=== PATIENT | male | born 1930 | race Caucasian/White ===

== ENCOUNTER 2016-08-27 14:34 | Observation (INO) | payer OTHER, BC ==
[~2016-08-27] VITALS: Ht 167.6 cm; Wt 95.0 kg
[2016-08-27] MEDS ORDERED: SODIUM CHLORIDE 0.9% 1000ML 500 ML IV STA (14:55)
[2016-08-27] MEDS ORDERED: DIPHTHERIA/TETANUS/PERTUSSIS 0.5 ML SYR/VIAL IM. ONE (15:00)
--- NOTE | 2016-08-27 15:04 | EMERGENCY ROOM VISIT NOTE ---
History Report prepared by Luis: Pepper Keys Under the Supervision of: Dr. John Castaneda M.D. First contact with patient: 14:49 Chief Complaint: FALL Stated Complaint: SYNCOPE History of Present Illness The patient is a 86 year old male who presents to the Emergency Room via EMS status post a fall this afternoon. Per nursing staff, the patient was sitting at the kitchen table and fell to the ground. His son was in the bathroom at the time and heard a thump but he did not witness the fall. The patient did hit his head. He was wearing glasses on top of his head and obtained two small lacerations on the top of his head from the nose pieces on the glasses. Upon EMS arrival, the patient was pale and sweaty. He was also incontinent of both stool and urine. Currently, the patient does not complain of any pain. He does not remember falling to the ground. History limited secondary to altered mental status. Tetanus status is unknown. Source of History: patient, nursing staff History Limited By: AMS Onset: this afternoon Position: other (global) Quality: other (fall) Timing: other (episode) Note: Other symptoms: lacerations to head, pale & sweaty, incontinent of stool and urine Review of Systems Limited secondary to altered mental status. Past Medical & Surgical Medical Problems: (1) Dementia Family History Noncontributory secondary to age. Social History Smoking Status: Former Smoker Housing Status: lives with family Current/Historical Medications Scheduled Acetylcarnitine Hcl (Acetyl L-Carnitine), 1 TAB PO QPM Aspirin (Aspirin Ec), 81 MG PO 3XWK Brimonidine Tartrate-Timolol M (Combigan), 1 DROP OPR BID Brinzolamide Oph (Azopt Oph), 1 DROP OPR BID Calcium Carbonate-Cholecalcife (Caltrate 600+D), 1 TAB PO DAILY Multiple Vitamins W/ Minerals (Centrum Silver Adult 50+), 1 TAB PO DAILY [place]-3 Fatty Acids (Fish Oil), 600 MG PO DAILY Pindolol (Visken), 5 MG PO DAILY Vitamin Z-Cfhzkbxhwabgkoy-Tjts (Vitamin C & D3/Marie Hips), 3 CAP PO DAILY Allergies Coded Allergies: Bupivacaine (Verified Allergy, Severe, RXN UNKNOWN, BUT ENDED UP IN THE UNIT, 08/27/16) Fentanyl (Verified Allergy, Severe, RXN UNKNOWN, BUT ENDED UP IN THE UNIT , 08/27/16) Celecoxib (Verified Adverse Reaction, Unknown, BLACKED OUT, 08/27/16) Physical Exam Vital Signs Date Time Temp Pulse Resp B/P Pulse Ox O2 Delivery O2 Flow Rate FiO2 08/27/16 20:34 70 17 96 08/27/16 19:34 69 16 95 08/27/16 19:01 74 08/27/16 18:57 74 18 127/74 96 Room Air 08/27/16 18:56 127/74 08/27/16 18:34 79 20 99 08/27/16 17:34 80 31 97 08/27/16 17:04 143/77 08/27/16 16:55 79 18 143/77 97 Room Air 08/27/16 15:34 75 21 97 08/27/16 15:29 97 Room Air 08/27/16 15:00 71 08/27/16 14:40 133/78 08/27/16 14:39 37.1 67 18 133/78 95 Room Air Physical Exam GENERAL: Patient is in no acute distress. HEENT: 2, 1 cm fairly superficial lacerations to the superior scalp consistent with an injury form the nasal portion of his glasses, pupils equal and reactive to light, no other facial trauma noted, mucous membranes are moist. NECK: No stridor, no adenopathy, no meningismus, trachea is midline, no posterior c-spine tenderness. LUNGS: Clear to auscultation bilaterally, no wheeze, no rhonchi, breath sounds equal. HEART: Without murmurs gallops or rubs, regular rate and rhythm. ABDOMEN: Soft, nontender, bowel sounds positive, no hernias, no peritonitis. EXTREMITIES: No cyanosis or edema, full range of motion of all the joints without pain or difficulty, no signs for acute trauma. NEUROLOGIC: Amnestic of today's events, some dementia suspected, moving all extremities equally, awake. SKIN: No rash, no jaundice, no diaphoresis. Medical Decision & Procedures ER Provider Diagnostic Interpretation: Radiology results and stated below per my review and radiologist interpretation: CHEST ONE VIEW PORTABLE CLINICAL HISTORY: EVALUATE ALTERED MENTAL STATUS/WEAKNESS dyspnea COMPARISON STUDY: No previous studies for comparison. FINDINGS: The bones soft tissues and hemidiaphragms are normal. The cardiomediastinal silhouette is normal. The lungs are clear. The pulmonary vasculature is normal. IMPRESSION: Negative chest. Electronically signed by: Elmo Iniguez M.D. 08/27/2016 3:39 PM Dictated Date/Time: 08/27/2016 3:[address] SCAN OF THE BRAIN WITHOUT IV CONTRAST CLINICAL HISTORY: Fall. Change in mental status. COMPARISON STUDY: No priors. TECHNIQUE: Unenhanced axial CT scan of the brain is performed from the vertex to the skull base. CT DOSE: Reported separately under the concurrently performed CT scan of the cervical spine. FINDINGS: Brain parenchyma: There are age-related involutional changes noting mild to moderate patchy subcortical and periventricular microangiopathic change. There is no hemorrhage, mass effect, or evidence of acute territorial ischemia by CT criteria. Peralta-white matter is preserved. No extra-axial fluid collection is seen. Ventricles, sulci, cisterns: Prominent secondary to involutional change. Intracranial vasculature: There is atherosclerotic calcification of the cavernous carotid and vertebral arteries. Calvarium: The skeletal structures are osteopenic. There is no depressed calvarial fracture. Sinuses and mastoids: The visualized paranasal sinuses are clear. The mastoid air cells are well pneumatized. Orbits: The bony orbits are grossly intact. There are bilateral ocular lens implants. IMPRESSION: There is no hemorrhage, mass effect, or evidence of acute territorial ischemia by CT criteria. Electronically signed by: John Olea M.D. 08/27/2016 4:42 PM Dictated Date/Time: 08/27/2016 4:[address] SCAN OF THE CERVICAL SPINE CLINICAL HISTORY: Fall. Trauma. COMPARISON STUDY: No priors. TECHNIQUE: CT scan of the cervical spine is performed from the skull base to the upper thoracic spine. Images are reviewed in the axial, sagittal, and coronal planes. IV contrast was not administered for this examination. CT DOSE: 1065.86 mGy.cm FINDINGS: Skeletal structures: The skeletal structures are osteopenic. There is no evidence of fracture or subluxation involving the cervical spine. Vertebral body height and alignment are maintained. The odontoid process and lateral masses are intact. The atlantoaxial articulation is preserved noting productive degenerative change. The spinous processes appear intact. Anterior osteophytes are noted in the lower cervical region. Endplate sclerosis is present at C5-C6 and C6-C7. There is moderate multilevel cervical spondylosis. Uncovertebral and facet arthropathy contribute to neural foraminal narrowing at most levels. This is greatest at C5-C6 and C6-C7. Intervertebral discs: Moderate degenerative disc space narrowing is seen at C4-C5. Moderate to advanced narrowing seen at C5-C6 and C6-C7. Central canal: Posterior disc osteophyte complexes at C4-C5, C5-C6, and C6-C7 likely contribute to acquired compromise of the central canal. Soft tissues: The prevertebral and paraspinous soft tissues are within normal limits. Calvarium: The visualized calvarium at the skull base appears intact. Brain parenchyma: Partially visualized brain parenchyma the skull base is within normal limits noting age-related involutional change. Sinuses and mastoids: There is trace mucosal thickening within the maxillary antra. The mastoid air cells are well pneumatized. Lung apices: Clear as visualized. IMPRESSION: 1. There is no evidence of fracture or subluxation involving the cervical spine. 2. Osteopenia and spondylotic change as above. Electronically signed by: John Olea M.D. 08/27/2016 4:45 PM Dictated Date/Time: 08/27/2016 4:39 PM Laboratory Results 08/27/16 18:11 Red Blood Count 4.29, Mean Corpuscular Volume 95.8, Mean Corpuscular Hemoglobin 32.2, Mean Corpuscular Hemoglobin Concent 33.6, Mean Platelet Volume 9.3, Neutrophils (%) (Auto) 62.6, Lymphocytes (%) (Auto) 18.1, Monocytes (%) (Auto) 18.4, Eosinophils (%) (Auto) 0.6, Basophils (%) (Auto) 0.3, Neutrophils # (Auto ) 2.21, Lymphocytes # (Auto) 0.64, Monocytes # (Auto) 0.65, Eosinophils # (Auto ) 0.02, Basophils # (Auto) 0.01 08/27/16 16:15 Test 08/27/16 16:15 08/27/16 18:11 08/27/16 18:35 08/27/16 20:26 Anion Gap 11.0 mmol/L (3-11) Estimated GFR () 91.4 Estimated GFR (Non- 78.9 BUN/Creatinine Ratio 17.2 (10-20) Calcium Level 8.3 mg/dl (8.5-10.1) Total Bilirubin 0.5 mg/dl (0.2-1) Aspartate Amino Transf (AST/SGOT) U/L (15-37) Alanine Aminotransferase (ALT/SGPT) 23 U/L (12-78) Alkaline Phosphatase 63 U/L (45-117) Total Protein 6.7 gm/dl (6.4-8.2) Albumin 3.1 gm/dl (3.4-5.0) Globulin 3.6 gm/dl (2.5-4.0) Albumin/Globulin Ratio 0.9 (0.9-2) Thyroid Stimulating Hormone (TSH) 0.522 uIu/ml (0.300-4.500) White Blood Count 3.53 K/uL (4.8-10.8) Red Blood Count 4.29 M/uL (4.7-6.1) Hemoglobin 13.8 g/dL (14.0-18.0) Hematocrit 41.1 % (42-52) Mean Corpuscular Volume 95.8 fL (80-100) Mean Corpuscular Hemoglobin 32.2 pg (25-34) Mean Corpuscular Hemoglobin Concent 33.6 g/dl (32-36) Platelet Count 108 K/uL (130-400) Mean Platelet Volume 9.3 fL (7.4-10.4) Neutrophils (%) (Auto) 62.6 % Lymphocytes (%) (Auto) 18.1 % Monocytes (%) (Auto) 18.4 % Eosinophils (%) (Auto) 0.6 % Basophils (%) (Auto) 0.3 % Neutrophils # (Auto) 2.21 K/uL (1.4-6.5) Lymphocytes # (Auto) 0.64 K/uL (1.2-3.4) Monocytes # (Auto) 0.65 K/uL (0.11-0.59) Eosinophils # (Auto) 0.02 K/uL (0-0.5) Basophils # (Auto) 0.01 K/uL (0-0.2) RDW Standard Deviation 48.4 fL (36.4-46.3) RDW Coefficient of Variation 13.8 % (11.5-14.5) Immature Granulocyte % (Auto) 0.0 % Immature Granulocyte # (Auto) 0.00 K/uL (0.00-0.02) Prothrombin Time 11.0 SECONDS (9.0-12.0) Prothromb Time International Ratio 1.0 (0.9-1.1) Activated Partial Thromboplast Time 26.5 SECONDS (21.0-31.0) Partial Thromboplastin Ratio 1.0 Urine Color DK YELLOW Urine Appearance CLEAR (CLEAR) Urine pH 5.0 (4.5-7.5) Urine Specific [place] 1.021 (1.000-1.030) Urine Protein NEG (NEG) Urine Glucose (UA) NEG (NEG) Urine Ketones NEG (NEG) Urine Occult Blood NEG (NEG) Urine Nitrite NEG (NEG) Urine Bilirubin NEG (NEG) Urine Urobilinogen NEG (NEG) Urine Leukocyte Esterase NEG (NEG) Test 08/27/16 21:27 Laboratory results reviewed by me. Medications Administered Medications (Trade) Dose Ordered Sig/Marcus Route Start Time Stop Time Status Last Admin Dose Admin Diphtheria/ Pertussis/Tetanus Vacc 0.5 ml 0.5 ml ONCE ONCE IM. 08/27/16 15:00 08/27/16 15:02 DC 08/27/16 15:22 0.5 ML Sodium Chloride 500 ml @ 999 mls/hr Q31M STAT IV 08/27/16 14:55 08/27/16 15:25 DC 08/27/16 17:15 999 MLS/HR Sodium Chloride 500 ml @ 999 mls/hr Q31M STAT IV 08/27/16 18:04 08/27/16 18:34 DC 08/27/16 18:04 999 MLS/HR Sodium Chloride (Nss 500ml) 500 ml @ 999 mls/hr Q31M STAT IV 08/27/16 18:40 08/27/16 19:10 DC 08/27/16 19:00 999 MLS/HR ECG Indication: other (fall) Rate (beats per minute): 67 Rhythm: normal sinus Findings: no acute ischemic change, no ectopy Comparison ECG Date: 03/09/2004 Change: no significant change ED Course 1452: The patient was evaluated in room A9A. A complete history and physical exam was performed. 1455: Ordered NSS 500 ml @ 999 mls/hr IV, Adacel Inj 0.5 ml IM. 1608: I spoke with the patient's son who confirmed the patients history. He said that the patients mental state is currently baseline. 1804: Ordered NSS 500 ml @ 999 mls/hr IV. 1840: Ordered NSS 500 ml @ 999 mls/hr IV. 190: Upon reexamination the patient is resting comfortably. I discussed results and treatment plan with the patient. He verbalizes agreement and understanding. The patient will be evaluated for further management. 1937: I discussed the case with Dr. Sakshi Naqvi. The patient will be evaluated for further management. Medical Decision Differentials include intracranial bleeding, stroke, syncope, UT, dysrhythmia, anemia, electrolyte imbalance, infection. There is no leukocytosis or worrisome anemia. No significant electrolyte abnormality, kidney failure, hepatitis. The patient appears to be in a euthyroid state. Urinalysis does not show infection. By exam, there was no obvious injury to any of his extremities. Brain CT shows no acute bleed or mass effect. C-spine CT shows no acute fractures. Chest x-ray does not show pneumonia or CHF. EKG shows a normal sinus rhythm, no acute ischemia. Cardiac enzyme testing times one is not suggestive of acute cardiac injury. The patient received IV saline, his scalp wound was cleansed and dressed, suturing was not required, he was given an Adacel booster IM. I'm not sure what happened to the patient today. He may have had a syncopal event, certainly, seizure is a possibility. Dysrhythmia is a possibility. Given the unknowns, admission/observation was felt warranted. I spoke to case management, I talked with the patient and his son. The on-call hospitalist was consulted. Consults Time Called: 1909 Consulting Physician: Dr. Sakshi Naqvi Returned Call: 1937 I discussed the case with him. The patient will be evaluated for further management. Impression Primary Impression: Change in mental status Additional Impression: Syncope Scribe Attestation The scribe's documentation has been prepared under my direction and personally reviewed by me in its entirety. I confirm that the note above accurately reflects all work, treatment, procedures, and medical decision making performed by me. Departure Information Dispostion Being Evaluated By Hospitalist Patient Instructions My [facility] Problem Qualifiers
--- NOTE | 2016-08-27 15:41 | DIAGNOSTIC IMAGING REPORT ---
CHEST ONE VIEW PORTABLE CLINICAL HISTORY: EVALUATE ALTERED MENTAL STATUS/WEAKNESS dyspnea COMPARISON STUDY: No previous studies for comparison. FINDINGS: The bones soft tissues and hemidiaphragms are normal. The cardiomediastinal silhouette is normal. The lungs are clear. The pulmonary vasculature is normal. IMPRESSION: Negative chest. Electronically signed by: Elmo Iniguez M.D. 08/27/2016 3:39 PM Dictated Date/Time: 08/27/2016 3:39 PM
[2016-08-27] MEDS ORDERED: OMEG120013 PO (16:40)
[2016-08-27] MEDS ORDERED: CALC-354 PO (16:40)
[2016-08-27] MEDS ORDERED: BRIM0.2S OPR (16:40)
[2016-08-27] MEDS ORDERED: BRIN1SUS OPR (16:40)
[2016-08-27] MEDS ORDERED: MULT-845 PO (16:40)
[2016-08-27] MEDS ORDERED: [UNRECOGNIZED DRUG - CODE] PO (16:40)
[2016-08-27] MEDS ORDERED: VITA1CAP57 PO (16:40)
[2016-08-27] MEDS ORDERED: VSK5 PO (16:40)
[2016-08-27] MEDS ORDERED: ASPI81TA28 PO (16:40)
--- NOTE | 2016-08-27 16:43 | DIAGNOSTIC IMAGING REPORT ---
CT SCAN OF THE BRAIN WITHOUT IV CONTRAST CLINICAL HISTORY: Fall. Change in mental status. COMPARISON STUDY: No priors. TECHNIQUE: Unenhanced axial CT scan of the brain is performed from the vertex to the skull base. CT DOSE: Reported separately under the concurrently performed CT scan of the cervical spine. FINDINGS: Brain parenchyma: There are age-related involutional changes noting mild to moderate patchy subcortical and periventricular microangiopathic change. There is no hemorrhage, mass effect, or evidence of acute territorial ischemia by CT criteria. Peralta-white matter is preserved. No extra-axial fluid collection is seen. Ventricles, sulci, cisterns: Prominent secondary to involutional change. Intracranial vasculature: There is atherosclerotic calcification of the cavernous carotid and vertebral arteries. Calvarium: The skeletal structures are osteopenic. There is no depressed calvarial fracture. Sinuses and mastoids: The visualized paranasal sinuses are clear. The mastoid air cells are well pneumatized. Orbits: The bony orbits are grossly intact. There are bilateral ocular lens implants. IMPRESSION: There is no hemorrhage, mass effect, or evidence of acute territorial ischemia by CT criteria. Electronically signed by: John Olea M.D. 08/27/2016 4:42 PM Dictated Date/Time: 08/27/2016 4:40 PM
--- NOTE | 2016-08-27 16:46 | DIAGNOSTIC IMAGING REPORT ---
CT SCAN OF THE CERVICAL SPINE CLINICAL HISTORY: Fall. Trauma. COMPARISON STUDY: No priors. TECHNIQUE: CT scan of the cervical spine is performed from the skull base to the upper thoracic spine. Images are reviewed in the axial, sagittal, and coronal planes. IV contrast was not administered for this examination. CT DOSE: 1065.86 mGy.cm FINDINGS: Skeletal structures: The skeletal structures are osteopenic. There is no evidence of fracture or subluxation involving the cervical spine. Vertebral body height and alignment are maintained. The odontoid process and lateral masses are intact. The atlantoaxial articulation is preserved noting productive degenerative change. The spinous processes appear intact. Anterior osteophytes are noted in the lower cervical region. Endplate sclerosis is present at C5-C6 and C6-C7. There is moderate multilevel cervical spondylosis. Uncovertebral and facet arthropathy contribute to neural foraminal narrowing at most levels. This is greatest at C5-C6 and C6-C7. Intervertebral discs: Moderate degenerative disc space narrowing is seen at C4-C5. Moderate to advanced narrowing seen at C5-C6 and C6-C7. Central canal: Posterior disc osteophyte complexes at C4-C5, C5-C6, and C6-C7 likely contribute to acquired compromise of the central canal. Soft tissues: The prevertebral and paraspinous soft tissues are within normal limits. Calvarium: The visualized calvarium at the skull base appears intact. Brain parenchyma: Partially visualized brain parenchyma the skull base is within normal limits noting age-related involutional change. Sinuses and mastoids: There is trace mucosal thickening within the maxillary antra. The mastoid air cells are well pneumatized. Lung apices: Clear as visualized. IMPRESSION: 1. There is no evidence of fracture or subluxation involving the cervical spine. 2. Osteopenia and spondylotic change as above. Electronically signed by: John Olea M.D. 08/27/2016 4:45 PM Dictated Date/Time: 08/27/2016 4:39 PM
[2016-08-27 17:01] LABS: ALB/GLOB RATIO 0.9 (0.9-2); ALKALINE PHOSPHATASE 63 U/L (45-117); ALT/SGPT 23 U/L (12-78); BLOOD UREA NITROGEN 15 mg/dl (7-18); BUN/CREATININE RATIO 17.2 (10-20); CALCIUM 8.3 mg/dl (8.5-10.1); CARBON DIOXIDE 22 mmol/L (21-32); CHLORIDE 108 mmol/L (98-107); CREATININE 0.85 mg/dl (0.60-1.40); GLUCOSE 105 mg/dl (70-99); SODIUM 141 mmol/L (136-145); THYROID STIMULATING HORMONE 0.522 uIu/ml (0.300-4.500)
[2016-08-27] MEDS ORDERED: SODIUM CHLORIDE 0.9% 500ML 500 ML IV STA ×2 (18:04→18:40)
[2016-08-27 18:20] LABS: BASO % 0.3 %; BASO ABS # 0.01 K/uL (0-0.2); COMPLETE YES; EOS % 0.6 %; HEMATOCRIT 41.1 % (42-52); LYMPH % 18.1 %; LYMPH ABS # 0.64 K/uL (1.2-3.4); MEAN CELL VOLUME 95.8 fL (80-100); MEAN CORPUSCULAR HEMOGLOBIN 32.2 pg (25-34); MEAN CORPUSCULAR HGB CONC 33.6 g/dl (32-36); MEAN PLATELET VOLUME 9.3 fL (7.4-10.4); MONO % 18.4 %; NEUT % 62.6 %; PLATELET COUNT 108 K/uL (130-400); RED BLOOD COUNT 4.29 M/uL (4.7-6.1); WHITE BLOOD COUNT 3.53 K/uL (4.8-10.8)
[2016-08-27 18:46] LABS: URINE APPEARANCE CLEAR (CLEAR); URINE BILIRUBIN NEG (NEG); URINE COLOR DK YELLOW; URINE NITRITE NEG (NEG); URINE SPECIFIC GRAVITY 1.021 (1.000-1.030); UROBILINOGEN NEG (NEG); ZZURINE CULT IF INDIC CATH NO
[2016-08-27 18:51] LABS: MANUAL MICROSCOPIC REQUIRED? NO; REVIEW REQ? NO
[2016-08-27] MEDS ORDERED: ACETAMINOPHEN 325 MG TAB PO PRN (21:15)
[2016-08-27] MEDS ORDERED: OXYCODONE/ACETAMINOPHEN 5-325 TAB PO PRN (21:15)
[2016-08-27] MEDS ORDERED: NITROGLYCERIN 0.4 MG SL PER TAB CHARGE SL PRN (21:15)
[2016-08-27] MEDS ORDERED: IV FLUIDS COMPLETED PRN (21:15)
[2016-08-27 21:51] LABS: POTASSIUM 4.3 mmol/L (3.5-5.1)
[2016-08-27 22:00] LABS: MAGNESIUM 2.1 mg/dl (1.8-2.4)
[2016-08-27 22:30] VITALS: BP 158/86; PULSE 76; TEMP 37; O2SAT 96
[2016-08-27 22:35] VITALS: BP 158/86; PULSE 76; TEMP 37; O2SAT 95; Ht 167.6 cm; Wt 95.0 kg
[2016-08-27] MEDS ORDERED: SODIUM CHLORIDE 0.45% 1000ML 1,000 ML IV ONE (22:45)
[2016-08-27] MEDS: COMBIGAN~ORDER AWAITING ACTION SCH ×2 (22:45→23:41)
[2016-08-27 23:30] VITALS: BP 129/78; PULSE 74; TEMP 37.8; O2SAT 95
--- NOTE | 2016-08-27 23:55 | HISTORY & PHYSICAL EXAMINATION ---
DATE OF ADMISSION: 08/27/2016 PRIMARY CARE PHYSICIAN: Dr. Palencia. History obtained from patient, records, patient's son. Limited history from px secondary to hearing impairment, dementia. CHIEF COMPLAINT: Fall, as per son. HISTORY OF PRESENT ILLNESS: Medical history significant for dementia, hypertension, prostate cancer sp surgery, radiation, past tobacco abuse. Recent confinement February 2004 for knee surgery. This afternoon, patient was found on the floor after son heard a bang. Patient does not recall what happened. Initially, was face down. Denies chest pain, shortness of breath. The patient cannot say for sure that he passed out. Bladder incontinence noted. No seizure activity, no tongue biting noted. MEDICAL HISTORY: As above. SURGERIES: Knee surgery, cataract surgery, cholecystectomy, eye surgery, prostate cancer post-surgery, radiation. HOME MEDICATIONS: Include aspirin, pindolol, donepezil, Azopt, Combigan, fish oil, multivitamins. ALLERGIES: ANESTHETICS, CELEBREX, DOXAZOSIN, FENTANYL, IODINE. FAMILY HISTORY: Stroke, Crohn's disease. PERSONAL AND SOCIAL HISTORY: Past tobacco, no chronic intake of alcoholic beverages. 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 Lives with family. REVIEW OF SYSTEMS: Cannot be reliably obtained. PHYSICAL EXAMINATION: VITAL SIGNS: Blood pressure was noted to be was noted to be 127/74, pulse rate 70, RR 18, temperature 37. O2 sats 95 on room air. GENERAL: Noted to be demented, coherent, hard of hearing. SKIN: Pallor. HEENT: Pale palpebral conjunctivae. Dry oral mucosa. NECK: No JVD. Supple. CHEST: Clear to auscultation. HEART: Regular rhythm and rate. ABDOMEN: Soft. EXTREMITIES: No edema, no tenderness. Healed incision on the left knee. NEUROLOGIC: Demented, hard of hearing. Gait and stance not assessed. LABS: Hemoglobin was noted to be 13.8, hematocrit 40, white cells 5.5, platelets 108. Sodium was noted to be 141, potassium 4.3, chloride 108, CO2 22, BUN 15, creatinine 0.8, glucose 105, calcium was 8.3. TSH normal. Troponin normal. CT head, no acute pathology. Cervical spine CT, osteopenia. EKG, rate of 67, normal sinus rhythm, no ischemia. ASSESSMENT: 1. Unwitnessed fall known ambulatory dysfunction from chronic knee complaints Possible syncope. rule out cardiac pathology, seizures as differentials. 2. Hypertension, stable. 3. Thrombocytopenia, unclear etiology. 4. Dementia, as per records. 5. hx prostate CA sp surgery, radiation 6. past tobacco abuse PLAN: Observation PCU, 2D echo, EEG RE syncope workup. PT, OT eval. Follow platelets, hold aspirin for now. DVT prophylaxis, SCDs RE thrombocytopenia. Full code, as per son/POA, Mr. Bill Bhandari. He requests updates from providers. (contact number : [phone]) LUCIDNA
[2016-08-28] VITALS (7 sets, daily range): BP systolic 107–142; BP diastolic 51–78; PULSE 69–85; TEMP 36.6–37.7; O2SAT 95–98
[2016-08-28 00:53] LABS: URINE APPEARANCE CLEAR (CLEAR); URINE BILIRUBIN NEG (NEG); URINE COLOR YELLOW; URINE NITRITE NEG (NEG); URINE SPECIFIC GRAVITY 1.018 (1.000-1.030); UROBILINOGEN NEG (NEG); ZZUR CULT IF INDIC CLEAN CATCH NO
[2016-08-28 01:15] LABS: MANUAL MICROSCOPIC REQUIRED? NO; REVIEW REQ? NO
[2016-08-28 06:37] LABS: BASO % 0.3 %; BASO ABS # 0.01 K/uL (0-0.2); COMPLETE YES; EOS % 2.4 %; LYMPH % 32.7 %; LYMPH ABS # 1.07 K/uL (1.2-3.4); MEAN CELL VOLUME 95.5 fL (80-100); MEAN CORPUSCULAR HGB CONC 33.6 g/dl (32-36); MEAN PLATELET VOLUME 9.7 fL (7.4-10.4); MONO % 21.1 %; NEUT % 43.5 %; PLATELET COUNT 117 K/uL (130-400); WHITE BLOOD COUNT 3.27 K/uL (4.8-10.8)
[2016-08-28 07:10] LABS: BUN/CREATININE RATIO 14.2 (10-20); CALCIUM 8.3 mg/dl (8.5-10.1); CREATININE 0.74 mg/dl (0.60-1.40); POTASSIUM 3.6 mmol/L (3.5-5.1)
[2016-08-28] MEDS: COMBIGAN~ORDER AWAITING ACTION SCH ×2 (07:38→15:46)
[2016-08-28] MEDS ORDERED: PNEUMOCOCCAL POLYSACCHARIDES 25 MCG/0.5 ML VIAL/SYR IM. ONE (08:00)
[2016-08-28] MEDS ORDERED: INFLUENZA VIRUS QUAD VACCINE 0.5 ML SYR IM. ONE (08:00)
[2016-08-28] MEDS ORDERED: INFLUENZA ADMINISTRATION CHARGE ONE (08:00)
[2016-08-28] MEDS ORDERED: PNEUMOCOCCAL ADMINISTRATION CHARGE ONE (08:00)
[2016-08-28] MEDS: CEROVITE ADV FORMULA TAB PO SCH (09:23)
[2016-08-28] MEDS: BRINZOLAMIDE (AZOPT) OPS 10 ML BTL OPR SCH ×2 (09:24→20:21)
--- NOTE | 2016-08-28 10:01 | ELECTROENCEPHALOGRAPH REPORT ---
REQUESTING: Dr. Cantor. CLINICAL DIAGNOSIS: Syncope with prolonged unresponsiveness, question seizures. EEG DIAGNOSIS: Essentially normal during wakefulness. DESCRIPTION OF TRACING: This EEG was done as a bedside recording on a patient who is described as mildly confused. A simultaneous video analysis of patient movement and behavior was obtained. There are a number of muscle movement artifacts, but not sufficient to interfere with interpretation of the tracing. There may be a slight intermittent T3 electrode artifact as well which also does not interfere. No photic stimulation or hyperventilation was performed. Drowsiness and light sleep were not recorded. Under these conditions, there is evidence for a background rhythm in the alpha range of 9-10 Hz of maximum frequency and 30 microvolts of maximum amplitude. This is maximum posterior head regions and bilaterally symmetrical. Polymorphic mid to slightly lower frequency theta activity is seen over all head regions, maximum in the central and mid temporal regions and in a symmetrical fashion. Beta activity is seen bifrontally. At no time during the waking tracing is there evidence for potentially epileptogenic activity in the form of polyspike or spike wave bursts, focal sharp waves or focal spikes. INTERPRETATION: This EEG is essentially normal during wakefulness without evidence for a focal or generalized encephalopathy and without evidence for potentially epileptogenic activity.
--- NOTE | 2016-08-28 12:31 | Progress Note ---
Subjective Date of Service: Aug 28, 2016. Subjective Pt evaluation today including: conversation w/ patient, physical exam, lab review, review of studies, review of inpatient medication list Saw/examined the patient in room 280 +underlying dementia - pleasant does not recall the fall that brought him in currently eating, no issues with his Denies all other symptoms Problem List Medical Problems: (1) Change in mental status Status: Acute (2) Syncope Status: Acute Review of Systems All Other Systems: Reviewed and Negative Medications Current Inpatient Medications Medications (Trade) Dose Ordered Sig/Marcus Route Start Time Stop Time Status Last Admin Dose Admin Miscellaneous 1 ea 1 ea PRN PRN N/A 08/27/16 21:15 08/27/17 21:14 Sodium Chloride (1/2 Nss 1000ml) 1,000 ml @ 60 mls/hr [id number] ONCE IV 08/27/16 22:45 08/28/16 15:24 08/27/16 23:10 60 MLS/HR Acetaminophen (Tylenol Tab) 650 mg Q4H PRN PO 08/27/16 21:15 09/26/16 21:14 08/28/16 02:07 650 MG Nitroglycerin (Nitrostat Tab) 0.4 mg UD PRN SL 08/27/16 21:15 09/26/16 21:14 Oxycodone/ Acetaminophen (Percocet 5-325mg Tab) 1 tab Q6H PRN PO 08/27/16 21:15 09/10/16 21:14 Brinzolamide (Azopt) 1 drops BID OPR 08/28/16 09:00 09/27/16 08:59 08/28/16 09:24 1 DROPS Multivitamins/ Minerals (Multivitamin W/ Minerals Tab) 1 tab DAILY PO 08/28/16 09:00 09/27/16 08:59 08/28/16 09:23 1 TAB Miscellaneous Information (Order Awaiting Action) 1 ea QS N/A 08/27/16 22:45 09/26/16 22:44 Miscellaneous Information (Order Awaiting Action) 1 ea QS N/A 08/27/16 22:45 09/26/16 22:44 Objective Vital Signs Date Time Temp Pulse Resp B/P Pulse Ox O2 Delivery O2 Flow Rate FiO2 08/28/16 12:00 Room Air 08/28/16 11:23 37.0 72 18 142/78 98 Room Air 08/28/16 08:00 Room Air 08/28/16 07:54 37.0 70 18 121/73 97 Room Air 08/28/16 04:00 95 Room Air 08/28/16 03:55 36.6 69 18 137/72 96 Room Air 08/28/16 00:00 95 Room Air 08/27/16 23:30 37.8 74 20 129/78 95 Room Air 08/27/16 22:35 95 Room Air 08/27/16 22:35 37.0 76 22 158/86 08/27/16 22:30 37.0 76 22 158/86 96 Room Air 08/27/16 21:55 75 22 148/97 96 Room Air 08/27/16 20:34 70 17 96 08/27/16 19:34 69 16 95 08/27/16 19:01 74 08/27/16 18:57 74 18 127/74 96 Room Air 08/27/16 18:56 127/74 08/27/16 18:34 79 20 99 08/27/16 17:34 80 31 97 08/27/16 17:04 143/77 08/27/16 16:55 79 18 143/77 97 Room Air 08/27/16 15:34 75 21 97 08/27/16 15:29 97 Room Air 08/27/16 15:00 71 08/27/16 14:40 133/78 08/27/16 14:39 37.1 67 18 133/78 95 Room Air Physical Exam General Appearance: no apparent distress, + pertinent finding (pleasantly demented) Respiratory/Chest: lungs clear, normal breath sounds, no respiratory distress, no accessory muscle use Cardiovascular: regular rate, rhythm, no edema, no murmur Abdomen: normal bowel sounds, non tender, soft Extremities: normal inspection, no pedal edema Neurologic/Psychiatric: no motor/sensory deficits, alert, normal mood/affect, + pertinent finding (recall problems with event that brought him in) Skin: normal color Lymphatic: no adenopathy Laboratory Results Last 24 Hours Test 08/27/16 16:15 08/27/16 18:11 08/27/16 18:35 08/27/16 21:21 Sodium Level 141 mmol/L Potassium Level mmol/L 4.3 mmol/L Chloride Level 108 mmol/L Carbon Dioxide Level 22 mmol/L Anion Gap 11.0 mmol/L Blood Urea Nitrogen 15 mg/dl Creatinine 0.85 mg/dl Estimated GFR () 91.4 Estimated GFR (Non- 78.9 BUN/Creatinine Ratio 17.2 Random Glucose 105 mg/dl Calcium Level 8.3 mg/dl Total Bilirubin 0.5 mg/dl Aspartate Amino Transf (AST/SGOT) U/L Alanine Aminotransferase (ALT/SGPT) 23 U/L Alkaline Phosphatase 63 U/L Troponin I < 0.015 ng/ml < 0.015 ng/ml Total Protein 6.7 gm/dl Albumin 3.1 gm/dl Globulin 3.6 gm/dl Albumin/Globulin Ratio 0.9 Thyroid Stimulating Hormone (TSH) 0.522 uIu/ml White Blood Count 3.53 K/uL Red Blood Count 4.29 M/uL Hemoglobin 13.8 g/dL Hematocrit 41.1 % Mean Corpuscular Volume 95.8 fL Mean Corpuscular Hemoglobin 32.2 pg Mean Corpuscular Hemoglobin Concent 33.6 g/dl Platelet Count 108 K/uL Mean Platelet Volume 9.3 fL Neutrophils (%) (Auto) 62.6 % Lymphocytes (%) (Auto) 18.1 % Monocytes (%) (Auto) 18.4 % Eosinophils (%) (Auto) 0.6 % Basophils (%) (Auto) 0.3 % Neutrophils # (Auto) 2.21 K/uL Lymphocytes # (Auto) 0.64 K/uL Monocytes # (Auto) 0.65 K/uL Eosinophils # (Auto) 0.02 K/uL Basophils # (Auto) 0.01 K/uL RDW Standard Deviation 48.4 fL RDW Coefficient of Variation 13.8 % Immature Granulocyte % (Auto) 0.0 % Immature Granulocyte # (Auto) 0.00 K/uL Prothrombin Time 11.0 SECONDS Prothromb Time International Ratio 1.0 Activated Partial Thromboplast Time 26.5 SECONDS Partial Thromboplastin Ratio 1.0 Urine Color DK YELLOW Urine Appearance CLEAR Urine pH 5.0 Urine Specific Xenia 1.021 Urine Protein NEG Urine Glucose (UA) NEG Urine Ketones NEG Urine Occult Blood NEG Urine Nitrite NEG Urine Bilirubin NEG Urine Urobilinogen NEG Urine Leukocyte Esterase NEG Magnesium Level 2.1 mg/dl Test 08/27/16 22:50 08/28/16 06:12 Urine Color YELLOW Urine Appearance CLEAR Urine pH 5.0 Urine Specific Xenia 1.018 Urine Protein NEG Urine Glucose (UA) NEG Urine Ketones NEG Urine Occult Blood 3+ Urine Nitrite NEG Urine Bilirubin NEG Urine Urobilinogen NEG Urine Leukocyte Esterase NEG Urine WBC (Auto) 1-5 /hpf Urine RBC (Auto) >30 /hpf Urine Hyaline Casts (Auto) 1-5 /lpf Urine Epithelial Cells (Auto) 10-20 /lpf Urine Bacteria (Auto) NEG White Blood Count 3.27 K/uL Red Blood Count 4.40 M/uL Hemoglobin 14.1 g/dL Hematocrit 42.0 % Mean Corpuscular Volume 95.5 fL Mean Corpuscular Hemoglobin 32.0 pg Mean Corpuscular Hemoglobin Concent 33.6 g/dl Platelet Count 117 K/uL Mean Platelet Volume 9.7 fL Neutrophils (%) (Auto) 43.5 % Lymphocytes (%) (Auto) 32.7 % Monocytes (%) (Auto) 21.1 % Eosinophils (%) (Auto) 2.4 % Basophils (%) (Auto) 0.3 % Neutrophils # (Auto) 1.42 K/uL Lymphocytes # (Auto) 1.07 K/uL Monocytes # (Auto) 0.69 K/uL Eosinophils # (Auto) 0.08 K/uL Basophils # (Auto) 0.01 K/uL RDW Standard Deviation 48.0 fL RDW Coefficient of Variation 13.6 % Immature Granulocyte % (Auto) 0.0 % Immature Granulocyte # (Auto) 0.00 K/uL Sodium Level 142 mmol/L Potassium Level 3.6 mmol/L Chloride Level 106 mmol/L Carbon Dioxide Level 27 mmol/L Anion Gap 9.0 mmol/L Blood Urea Nitrogen 11 mg/dl Creatinine 0.74 mg/dl Est Creatinine Clear Calc Drug Dose 77.3 ml/min Estimated GFR () 96.8 Estimated GFR (Non- 83.5 BUN/Creatinine Ratio 14.2 Random Glucose 92 mg/dl Calcium Level 8.3 mg/dl Assessment and Plan This is an 86 year old male with PMH of HTN, dementia, prostate CA, BPH, ambulatory issues secondary to knee surgeries presented s/p unwitnessed fall Unwitnessed Fall possibly mechanical fall EEG performed and no seizure activity noted echo pending monitored on tele PT/OT pending will likely need SNF placement prior to discharge home Thrombocytopenia unclear etiology improving this morning >100, will monitor DVT ppx SCDs FULL CODE d/c planning to SNF in 1-2 days, pending PT/OT evaluations
[2016-08-28] MEDS ORDERED: PERFLUTREN LIPID MICROSPHERE (DEFINITY) IV ONE (15:26)
[2016-08-29 04:00] VITALS: BP 147/90; PULSE 83; TEMP 37; O2SAT 96
[2016-08-29 06:44] LABS: HEMATOCRIT 37.9 % (42-52); MEAN CORPUSCULAR HEMOGLOBIN 31.1 pg (25-34); MEAN CORPUSCULAR HGB CONC 33.8 g/dl (32-36); MEAN PLATELET VOLUME 9.1 fL (7.4-10.4); PLATELET COUNT 121 K/uL (130-400); RED BLOOD COUNT 4.12 M/uL (4.7-6.1)
[2016-08-29 07:15] LABS: CREATININE 0.68 mg/dl (0.60-1.40)
[2016-08-29 07:16] LABS: BUN/CREATININE RATIO 20.3 (10-20); CALCIUM 7.8 mg/dl (8.5-10.1); MAGNESIUM 2.1 mg/dl (1.8-2.4); POTASSIUM 3.6 mmol/L (3.5-5.1)
[2016-08-29 07:30] VITALS: BP 144/99; PULSE 77; TEMP 37.1; O2SAT 95
[2016-08-29] MEDS: BRINZOLAMIDE (AZOPT) OPS 10 ML BTL OPR SCH (07:51)
[2016-08-29] MEDS: CEROVITE ADV FORMULA TAB PO SCH (07:51)
[2016-08-29] MEDS ORDERED: PINDOLOL 5 MG PO SCH (09:00)
--- NOTE | 2016-08-29 11:23 | Progress Note ---
Subjective Date of Service: Aug 29, 2016. Subjective Pt evaluation today including: conversation w/ patient, physical exam, lab review, review of studies, review of inpatient medication list Saw/examined the patient in room 280 Pleasantly demented Uses cane for ambulation Feels fine and would like to go home Problem List Medical Problems: (1) Change in mental status Status: Acute (2) Syncope Status: Acute Review of Systems Unable to obtain due to patient's mental status Medications Current Inpatient Medications Medications (Trade) Dose Ordered Sig/Marcus Route Start Time Stop Time Status Last Admin Dose Admin Miscellaneous (Iv Fluids Completed) 1 ea PRN PRN N/A 08/27/16 21:15 08/27/17 21:14 Acetaminophen (Tylenol Tab) 650 mg Q4H PRN PO 08/27/16 21:15 09/26/16 21:14 08/28/16 02:07 650 MG Nitroglycerin (Nitrostat Tab) 0.4 mg UD PRN SL 08/27/16 21:15 09/26/16 21:14 Oxycodone/ Acetaminophen (Percocet 5-325mg Tab) 1 tab Q6H PRN PO 08/27/16 21:15 09/10/16 21:14 Brinzolamide (Azopt) 1 drops BID OPR 08/28/16 09:00 09/27/16 08:59 08/29/16 07:51 1 DROPS Multivitamins/ Minerals (Multivitamin W/ Minerals Tab) 1 tab DAILY PO 08/28/16 09:00 09/27/16 08:59 08/29/16 07:51 1 TAB Pindolol (Visken Tab) 5 mg DAILY PO 08/29/16 09:00 09/28/16 08:59 08/29/16 07:51 5 MG Brimonidine/ Timolol (Combigan 0.2%/ 0.5% Oph Solution) 1 drop BID OP 08/28/16 21:00 09/27/16 20:59 08/29/16 07:51 1 DROP Objective Vital Signs Date Time Temp Pulse Resp B/P Pulse Ox O2 Delivery O2 Flow Rate FiO2 08/29/16 07:45 Room Air 08/29/16 07:30 37.1 77 18 144/99 95 Room Air 08/29/16 04:00 37.0 83 18 147/90 96 Room Air 08/29/16 04:00 Room Air 08/29/16 00:00 Room Air 08/28/16 23:51 37.1 85 20 107/51 97 Room Air 08/28/16 20:00 Room Air 08/28/16 19:39 37.7 69 20 126/77 97 Room Air 08/28/16 16:00 Room Air 08/28/16 12:00 Room Air 08/28/16 11:23 37.0 72 18 142/78 98 Room Air Physical Exam General Appearance: no apparent distress Respiratory/Chest: lungs clear, normal breath sounds, no respiratory distress, no accessory muscle use Cardiovascular: regular rate, rhythm, no edema, no murmur Abdomen: normal bowel sounds, non tender, soft Extremities: normal inspection, no pedal edema Neurologic/Psychiatric: no motor/sensory deficits, alert, normal mood/affect, + pertinent finding (+pleasantly demented) Laboratory Results Last 24 Hours Test 08/29/16 06:13 White Blood Count 2.90 K/uL Red Blood Count 4.12 M/uL Hemoglobin 12.8 g/dL Hematocrit 37.9 % Mean Corpuscular Volume 92.0 fL Mean Corpuscular Hemoglobin 31.1 pg Mean Corpuscular Hemoglobin Concent 33.8 g/dl RDW Standard Deviation 44.8 fL RDW Coefficient of Variation 13.4 % Platelet Count 121 K/uL Mean Platelet Volume 9.1 fL Sodium Level 142 mmol/L Potassium Level 3.6 mmol/L Chloride Level 107 mmol/L Carbon Dioxide Level 25 mmol/L Anion Gap 10.0 mmol/L Blood Urea Nitrogen 14 mg/dl Creatinine 0.68 mg/dl Est Creatinine Clear Calc Drug Dose 84.1 ml/min Estimated GFR () 100.2 Estimated GFR (Non- 86.5 BUN/Creatinine Ratio 20.3 Random Glucose 94 mg/dl Calcium Level 7.8 mg/dl Magnesium Level 2.1 mg/dl Assessment and Plan This is an 86 year old male with PMH of HTN, dementia, prostate CA, BPH, ambulatory issues secondary to knee surgeries presented s/p unwitnessed fall Unwitnessed Fall 08/29 patient has ambulatory dysfunction at baseline due to previous knee surger EEG - negative echo pending PT/OT - home vs. SNF son wants patient to go to [facility] Referral made as per social service 08/28 possibly mechanical fall EEG performed and no seizure activity noted echo pending monitored on tele PT/OT pending will likely need SNF placement prior to discharge home Thrombocytopenia unclear etiology improving this morning >100, will monitor DVT ppx SCDs FULL CODE d/c planning to SNF in 1-2 days, pending PT/OT evaluations Discharge planning: [facility] facility
[2016-08-29 11:27] VITALS: BP 126/79; PULSE 62; TEMP 36.8; O2SAT 94
--- NOTE | 2016-08-29 12:52 | Discharge Instructions ---
Discharge Instructions Admission Reason for Admission: Syncope Discharge Discharge Diagnosis / Problem: Mechanical Fall, Ambulatory Dysfunction Discharge Goals Goal(s): Decrease discomfort, Improve function Activity Recommendations Activity Limitations: resume your previous activity . Instructions / Follow-Up Instructions / Follow-Up Please follow-up with Dr. Palencia on September 04 @ 10:50AM PCP should recheck CBC to f/u on platelets Current Hospital Diet Patient's current hospital diet: AHA Diet (Heart Healthy) Discharge Diet Recommended Diet: Regular Diet Pending Studies Studies pending at discharge: no Medical Emergencies . Who to Call and When: Medical Emergencies: If at any time you feel your situation is an emergency, please call 911 immediately. . Non-Emergent Contact Non-Emergency issues call your: Primary Care Provider . . "Provider Documentation" section prepared by Elodia Yoon. VTE Core Measure Inpt VTE Proph given/why not?: SCD's
--- NOTE | 2016-08-29 13:02 | Discharge Summary ---
Discharge Summary Admission Date: Aug 27, 2016 at 20:27 Discharge Date: Aug 29, 2016 Discharge Disposition: Home with services Principal Diagnosis: Mechanical Fall Ambulatory Dysfunction Dementia Medication Reconciliation Continued Medications: Acetylcarnitine Hcl (Acetyl L-Carnitine) 500 Mg Cap 1 TAB PO QPM Aspirin (Aspirin Ec) 81 Mg Tab 81 MG PO 3XWK saturday and saturday Brimonidine Tartrate-Timolol M (Combigan) 1 Yana Yana 1 DROP OPR BID Brinzolamide Oph (Azopt Oph) 1 % Asiya 1 DROP OPR BID, BTL Calcium Carbonate-Cholecalcife (Caltrate 600+D) 1 Tab Tab 1 TAB PO DAILY Multiple Vitamins W/ Minerals (Centrum Silver Adult 50+) 1 Tab Tab 1 TAB PO DAILY Bern-3 Fatty Acids (Fish Oil) 1,200 Mg Cap 600 MG PO DAILY Pindolol (Visken) 5 Mg Tab 5 MG PO DAILY, TAB Vitamin T-Vsjffmdywxpjypr-Ggie (Vitamin C & D3/Marie Hips) 1 Cap Cap 3 CAP PO DAILY Admission Information HPI (per Admitting provider): DATE OF ADMISSION: 08/27/2016 PRIMARY CARE PHYSICIAN: Dr. Palencia. History obtained from patient, records, patient's son. Limited history from px secondary to hearing impairment, dementia. CHIEF COMPLAINT: Fall, as per son. HISTORY OF PRESENT ILLNESS: Medical history significant for dementia, hypertension, prostate cancer sp surgery, radiation, past tobacco abuse. Recent confinement February 2004 for knee surgery. This afternoon, patient was found on the floor after son heard a bang. Patient does not recall what happened. Initially, was face down. Denies chest pain, shortness of breath. The patient cannot say for sure that he passed out. Bladder incontinence noted. No seizure activity, no tongue biting noted. MEDICAL HISTORY: As above. SURGERIES: Knee surgery, cataract surgery, cholecystectomy, eye surgery, prostate cancer post-surgery, radiation. HOME MEDICATIONS: Include aspirin, pindolol, donepezil, Azopt, Combigan, fish oil, multivitamins. ALLERGIES: ANESTHETICS, CELEBREX, DOXAZOSIN, FENTANYL, IODINE. FAMILY HISTORY: Stroke, Crohn's disease. PERSONAL AND SOCIAL HISTORY: Past tobacco, no chronic intake of alcoholic beverages. 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 Lives with family. REVIEW OF SYSTEMS: Cannot be reliably obtained. PHYSICAL EXAMINATION: VITAL SIGNS: Blood pressure was noted to be was noted to be 127/74, pulse rate 70, RR 18, temperature 37. O2 sats 95 on room air. GENERAL: Noted to be demented, coherent, hard of hearing. SKIN: Pallor. HEENT: Pale palpebral conjunctivae. Dry oral mucosa. NECK: No JVD. Supple. CHEST: Clear to auscultation. HEART: Regular rhythm and rate. ABDOMEN: Soft. EXTREMITIES: No edema, no tenderness. Healed incision on the left knee. NEUROLOGIC: Demented, hard of hearing. Gait and stance not assessed. LABS: Hemoglobin was noted to be 13.8, hematocrit 40, white cells 5.5, platelets 108. Sodium was noted to be 141, potassium 4.3, chloride 108, CO2 22, BUN 15, creatinine 0.8, glucose 105, calcium was 8.3. TSH normal. Troponin normal. CT head, no acute pathology. Cervical spine CT, osteopenia. EKG, rate of 67, normal sinus rhythm, no ischemia. ASSESSMENT: 1. Unwitnessed fall known ambulatory dysfunction from chronic knee complaints Possible syncope. rule out cardiac pathology, seizures as differentials. 2. Hypertension, stable. 3. Thrombocytopenia, unclear etiology. 4. Dementia, as per records. 5. hx prostate CA sp surgery, radiation 6. past tobacco abuse PLAN: Observation PCU, 2D echo, EEG RE syncope workup. PT, OT eval. Follow platelets, hold aspirin for now. DVT prophylaxis, SCDs RE thrombocytopenia. Full code, as per son/POA, Mr. Bill Bhandari. He requests updates from providers. (contact number : [phone]) Hospital Course This is an 86 year old male with PMH of HTN, dementia, prostate CA, BPH, ambulatory issues secondary to knee surgeries presented s/p unwitnessed fall Unwitnessed Fall 08/29 patient has ambulatory dysfunction at baseline due to previous knee surger EEG - negative echo pending PT/OT - home vs. SNF son wants patient to go to [facility] Referral made as per social service 08/28 possibly mechanical fall EEG performed and no seizure activity noted echo pending monitored on tele PT/OT pending will likely need SNF placement prior to discharge home Thrombocytopenia unclear etiology improving this morning >100, will monitor DVT ppx SCDs FULL CODE d/c planning to SNF in 1-2 days, pending PT/OT evaluations Discharge planning: care home facility Total time spent on discharge = 25 minutes This includes examination of the patient, discharge planning, medication reconciliation, and communication with other providers. Discharge Instructions Please follow-up with Dr. Palencia on September 04 @ 10:50AM PCP should recheck CBC to f/u on platelets
[2016-08-29 13:53] VITALS: BP 126/79; PULSE 62; TEMP 36.8; O2SAT 94
--- NOTE | 2016-08-29 17:20 | ECHOCARDIOGRAM REPORT ---
*NOTICE TO RECEIVING [employer] This information is strictly Confidential and protected under [place] law. [place] law prohibits you from making any further disclosure of this information unless further disclosure is expressly permitted by the written consent of the person to whom it pertains or is authorized by law. A general authorization for the release of medical or other information is not sufficient for this purpose. Hospital accepts no responsibility if the information is made available to any other person, INCLUDING THE PATIENT. Interpretation Summary * Name: OG ALLEN Study Date: 08/28/2016 02:24 PM * Patient Location: [facility]\\N280\S\1 * : 1930 (M/d/yyyy) Gender: Male Height: 66 in * Age: 86 yrs Ethnicity: [place] Weight: 216 lb * Ordering Physician: Estuardo Cantor * Referring Physician: Self, Referred * Performed By: Rey Mckeon RCS * * Reason For Study: Syncope * BSA: 2.1 m2 * Grossly normal valvular structure and function. * -- Conclusions -- * The left ventricle is normal in size. * Ejection Fraction = 65-70%. * The right ventricular systolic function is normal. * The left atrial size is normal. * Right atrial size is normal. Procedure Details * A complete two-dimensional transthoracic echocardiogram was performed (2D, M-mode, Doppler and color flow Doppler). * A contrast injection of Definity was performed to improve assessment of LV function. * Contrast was injected into an intravenous site in the left arm. * One vial of Definity ultrasound contrast was diluted in normal saline to a total volume of 10 ml. A total of '2' ml of solution was administered during imaging. * Lot # [id number] of Definity utilized for procedure. * Expiration date . * The attending nurse who injected the contrast agent was Ruth Ann Burns RN. Left Ventricle * The left ventricle is normal in size. * There is normal left ventricular wall thickness. * Ejection Fraction = 65-70%. Right Ventricle * The right ventricle is normal size. * The right ventricular systolic function is normal. Atria * The left atrial size is normal. * Right atrial size is normal. * The interatrial septum is intact with no evidence for an atrial septal defect. Mitral Valve * The mitral valve is grossly normal. * Significant mitral regurgitation is absent. Tricuspid Valve * The tricuspid valve is not well visualized, but is grossly normal. * Significant tricuspid regurgitation is absent. Aortic Valve * The aortic valve is tricuspid. The leaflet thickness if normal. There is no aortic stenosis, and no significant insufficiency. * No hemodynamically significant valvular aortic stenosis. * There is no significant aortic regurgitation. Pericardium/Pleural * There is no pericardial effusion. Left Ventricular Diastolic Function * Grade I diastolic dysfunction, (abnormal relaxation pattern). MMode 2D Measurements and Calculations IVSd 1.0 cm IVSs 1.4 cm LVIDd 4.3 cm LVIDs 2.9 cm LVPWd 1.0 cm LVPWs 1.3 cm IVS/LVPW 10 FS 32.6 % EDV(Teich) 85.0 ml ESV(Teich) 32.9 ml EF(Teich) 61.3 % EDV(cubed) 81.9 ml ESV(cubed) 25.0 ml EF(cubed) 69.4 % % IVS thick 28.8 % % LVPW thick 22.3 % LV mass(C)d 154.7 grams LV mass(C)dI 74.9 grams/m\S\2 LV mass(C)s 122.7 grams LV mass(C)sI 59.4 grams/m\S\2 CO(Teich) 4.2 l/min CI(Teich) 2.0 l/min/m\S\2 SV(Teich) 52.1 ml SI(Teich) 25.2 ml/m\S\2 CO(cubed) 4.6 l/min CI(cubed) 2.2 l/min/m\S\2 SV(cubed) 56.8 ml SI(cubed) 27.5 ml/m\S\2 Ao root diam 3.7 cm Ao root area 10.9 cm\S\2 ACS 1.7 cm LA dimension 3.7 cm LA/Ao 1.0 LVAd ap4 28.9 cm\S\2 LVLd ap4 8.0 cm EDV(MOD-sp4) 85.0 ml LVAs ap4 13.7 cm\S\2 LVLs ap4 6.5 cm ESV(MOD-sp4) 24.0 ml EF(MOD-sp4) 71.8 % LVAd ap2 28.4 cm\S\2 LVLd ap2 7.7 cm EDV(MOD-sp2) 87.0 ml LVAs ap2 12.8 cm\S\2 LVLs ap2 5.7 cm ESV(MOD-sp2) 25.0 ml EF(MOD-sp2) 71.3 % CO(MOD-sp4) 4.9 l/min CI(MOD-sp4) 2.4 l/min/m\S\2 SV(MOD-sp4) 61.0 ml SI(MOD-sp4) 29.5 ml/m\S\2 CO(MOD-sp2) 5.0 l/min CI(MOD-sp2) 2.4 l/min/m\S\2 SV(MOD-sp2) 62.0 ml SI(MOD-sp2) 30.0 ml/m\S\2 Doppler Measurements and Calculations MV E max lissa 53.6 cm/sec MV A max lissa 87.5 cm/sec MV E/A 0.61 MV P1/2t max lissa 61.8 cm/sec MV P1/2t 87.7 msec MVA(P1/2t) 2.5 cm\S\2 MV dec slope 206.4 cm/sec\S\2 MV dec time 0.32 sec Ao V2 max 118.4 cm/sec Ao max PG 5.6 mmHg Ao max PG (full) 0.40 mmHg LV V1 max PG 5.2 mmHg LV V1 max 114.1 cm/sec PA V2 max 100.7 cm/sec PA max PG 4.1 mmHg PI max lissa 197.3 cm/sec PI max PG 15.6 mmHg PI dec slope 188.0 cm/sec\S\2 PI P1/2t 307.3 msec TR max lissa 263.2 cm/sec
--- NOTE | 2016-09-04 11:56 | EDITING REQUIRED CODING QUERY ---
SUPPORTING DIAGNOSIS NEEDED A supporting diagnosis is required for the test/procedure performed on this patient in order for us to be reimbursed by the patient's insurance. Please provide a supporting diagnosis for the following test/procedure listed below next to the test name along with your signature. *If there is no additional diagnosis for this patient that would support the following test/procedure please document that below next to the test/procedure. Test(s)/Procedure(s) that require a supporting diagnosis: * ECHO DIAGNOSIS: syncope * DOS: 08/28/16 Provider Signature: JNO Date: 09/04/16_ Thank you Kay Lundberg Health Information Management For questions please call [phone]
== END 2016-08-29 15:03 | disposition home or self-care (01) ==
LOC: ENRESERVDT → ENRESERVTM → EDBD 14:34 → C.EDA 14:36 → C.MED 20:27
PROVIDERS: ADMIT Family Medicine; ATTEND Family Medicine
DX: R55 Syncope and collapse (principal); R26.9 Unspecified abnormalities of gait and mobility; F03.90 Unspecified dementia, unspecified severity, without behavioral disturbance, psychotic disturbance, mood disturbance, and anxiety; W19.XXXA Unspecified fall, initial encounter; M85.80 Other specified disorders of bone density and structure, unspecified site; D69.6 Thrombocytopenia, unspecified; H91.90 Unspecified hearing loss, unspecified ear; I10 Essential (primary) hypertension; N40.0 Benign prostatic hyperplasia without lower urinary tract symptoms; Z85.46 Personal history of malignant neoplasm of prostate; Z90.49 Acquired absence of other specified parts of digestive tract; Z79.82 Long term (current) use of aspirin; Z87.891 Personal history of nicotine dependence; Z82.3 Family history of stroke